=== PATIENT | female | born 1955 | race Caucasian/White ===

== ENCOUNTER → 2022-10-12 | Outpatient (CLI) | payer OTHER, SELFPAY ==
--- NOTE | 2022-10-12 09:20 | TOBX_PTH ---
PATIENT: NANCY SMITH LOC: [facility] U#:[id number] AGE/SX: 66/F ROOM: RE10/12/[address]: ALICE SCOTT MD : [id number] BED: DIS: 10/12/2022 SPEC #: [id number] RECD: 10/12/22 10:46 STATUS: SHAKIRA LAMARGinny #: [id number] RODOLFO: 10/12/22 09:[address]: ALICE SCOTT DEPT: SURGICAL PATHOLOGY RECD BY: Matias Hilton Tissues: Tongue, NOS Procedures: Surgery Specimen Level IV HEADER OPERATION: Excisional biopsy of left lateral tongue lesion PRE-OP DIAGNOSIS: Three-month history of lesion on left lateral tongue, enlarged salivary gland TISSUE SUBMITTED: Left lateral tongue lesion MICROSCOPIC DIAGNOSIS Lesion of left lateral tongue, biopsy: Consistent with squamous papilloma. AM:az 10/13/2022 MICROSCOPIC DESCRIPTION Slides are reviewed. GROSS DESCRIPTION Received in fixative is one container labeled with the patient's name and designated tongue. The specimen consists of a piece of atkinson mucosal tissue measuring 0.3 x 0.2 x 0.2 cm. The entire specimen is submitted in one cassette. / SJ:az 10/12/2022 TC:5 CPT: 67406
== END | disposition home or self-care (01) ==
PROVIDERS: Visit Provider Dentist Oral and Maxillofacial Surgery
DX: K13.70 Unspecified lesions of oral mucosa (principal)
CPT/HCPCS: 88305